=== PATIENT | female | born 1980 | race Caucasian/White ===

== ENCOUNTER 2018-11-09 07:51 | Outpatient (CLI) | payer OTHER | END 2018-11-09 08:00 | disposition home or self-care (01) | LOC: LAB 07:51 | DX: E03.8 Other specified hypothyroidism (principal); E06.3 Autoimmune thyroiditis; D50.8 Other iron deficiency anemias; D51.8 Other vitamin B12 deficiency anemias; I10 Essential (primary) hypertension; D68.8 Other specified coagulation defects; D68.0 Von Willebrand disease ==